=== PATIENT | female | born 1960 | race Caucasian/White ===

== ENCOUNTER 2019-02-17 14:31 | Inpatient (IN) | payer OTHER ==
[~2019-02-17] VITALS: Ht 165.1 cm; Wt 106.1 kg
--- NOTE | 2019-02-17 18:30 | NUR ---
Admitted this 58 y/o female from [facility] with diagnosis of S/P left hip arthroplasty. Patient is alert, oriented x 4, not in any form of distress. Patient denies any pain or discomfort at this time. Routine admission care done. Call light placed within reach. Dr. Patel informed regarding admission and received orders for pain medications and bowel regimen. Marin Ibarra DNP notified of admission and need for medication reconciliation.
[2019-02-17] MEDS ORDERED: RIVA10TA PO (19:05)
[2019-02-17] MEDS ORDERED: HYDR-4076 PO (19:05)
[2019-02-17 19:30] VITALS: BP 105/45
[2019-02-17] MEDS ORDERED: BISACODYL 5 MG TABLET.DR PO PRN (19:30)
--- NOTE | 2019-02-17 19:30 | NUR ---
PATIENT RECEIVED IN BED, WATCHING TV. ALERT AND ORIENTED X 4. LEFT SIDED INCISION PHOTOGRAPHED AND DRESSING CHANGED. BELONGINGS ACCOUNTED FOR AND DOCUMENTED. C/O PAIN IN LEFT SIDE. PAIN MEDICATION ADMINISTERED. NO BM SINCE SURGERY. BOWEL CARE STARTED. CALL LIGHT AND FREQUENTLY USED ITEMS WITHIN REACH. WILL CONTINUE TO MONITOR.
[2019-02-17] MEDS: SENNOSIDES 1 TABLET PO SCH (20:13)
[2019-02-17] MEDS: HYDROCODONE/APAP 10-325 MG TABLET PO PRN (20:14)
[2019-02-17] MEDS: ZOLPIDEM 5 MG TABLET PO PRN (23:34)
--- NOTE | 2019-02-17 23:39 | NUR ---
PATIENT C/O SLEEPLESSNESS. MD SNEED CONTACTED. AMBIEN 5 MG ORDERED HS PRN. WILL ADMINISTER. WILL CONTINUE TO MONITOR.
[2019-02-18] MEDS: HYDROCODONE/APAP 10-325 MG TABLET PO PRN ×5 (00:18→22:21)
[2019-02-18 05:55] VITALS: BP 113/71
[2019-02-18 08:40] VITALS: BP 114/68
[2019-02-18] MEDS: hydrALAZINE HCL 25 MG TABLET PO SCH (08:42)
[2019-02-18] MEDS: RIVAROXABAN 10 MG TABLET PO SCH (08:47)
[2019-02-18 17:30] VITALS: BP 109/60
[2019-02-18 19:57] VITALS: BP 92/51
[2019-02-18] MEDS: SENNOSIDES 1 TABLET PO SCH (20:15)
--- NOTE | 2019-02-18 20:59 | NUR ---
resting in bed upon initial rounds. aaox4 Left hip dressing clean dry and intact. VSS. making needs known.Family in to visit. Ambulates to the BR with walker. Voiding freely. Denies any pain nor any discomfort. Will monitor patient. Kept comfortable.
[2019-02-18] MEDS: ZOLPIDEM 5 MG TABLET PO PRN (23:39)
[2019-02-19] MEDS: HYDROCODONE/APAP 10-325 MG TABLET PO PRN ×5 (06:01→23:41)
[2019-02-19 06:12] VITALS: BP 163/64
--- NOTE | 2019-02-19 06:20 | NUR ---
slept well most of the shift. aaox4. OOB to the BR with walker under supervision. Voiding well. medicated with 1 tab of [place] for pain on the left hip. No acute distress noted. Relief noted on left hip. attended to needs. When in bed patient has this abductor pillow in between legs. kept comfortable. VSS.
[2019-02-19] MEDS: RIVAROXABAN 10 MG TABLET PO SCH (08:44)
[2019-02-19] MEDS: hydrALAZINE HCL 25 MG TABLET PO SCH (08:51)
[2019-02-19 09:52] VITALS: BP 113/64
--- NOTE | 2019-02-19 09:53 | NUR ---
Received pt. in bed in no distress. A/Ox4 verbally responsive and able to make her needs known. All needs attended and met promptly. All due medications given as ordered and tolerated well. No s/sx of bleeding, on Xarelto. Lt hip surgical incision covered with boarder gauze, remain C/D/I. Safety measures in place. Call light and all frequently used items within pt. reach. Will continue to monitor accordingly.
[2019-02-19 17:25] VITALS: BP 123/66
--- NOTE | 2019-02-19 18:37 | NUR ---
End of shift note: No significant change during this shift. All needs attended and met promptly. Safety measures in placed. Bed in low position, brake on, side rails up x2 as an enabler. Call light and all frequently used items within pt. reach. Will endorse to next shift accordingly.
[2019-02-19 19:49] VITALS: BP 117/74
--- NOTE | 2019-02-19 19:52 | NUR ---
received in bed upon initial rounds. daughter in to visit. VSS. No acute distress noted. in good spirits. voiding well in the urinal. needs attended. kept comfortable. siderails up for safety. fall precautions maintained.
--- NOTE | 2019-02-19 19:58 | NUR ---
aaox4 resting in bed upon rounds watching TV. no acute distress noted. needs attended. OOB to the BR with walker. Voiding freely. VSS medicated with [place] as ordered for pain. Will monitor for relief.
[2019-02-19] MEDS: SENNOSIDES 1 TABLET PO SCH (20:08)
[2019-02-19] MEDS: ZOLPIDEM 5 MG TABLET PO PRN (23:41)
[2019-02-20 05:52] VITALS: BP 120/76
[2019-02-20 09:00] VITALS: BP 134/79
[2019-02-20] MEDS: RIVAROXABAN 10 MG TABLET PO SCH (09:00)
[2019-02-20] MEDS: hydrALAZINE HCL 25 MG TABLET PO SCH (09:03)
[2019-02-20] MEDS: HYDROCODONE/APAP 10-325 MG TABLET PO PRN ×4 (09:04→23:03)
--- NOTE | 2019-02-20 09:16 | NUR ---
Patient awake, alert, oriented x 4, not in any distress. Assisted to the bathroom and back to wheelchair. Due medications administered and tolerated well. PRN pain medication given for complain of left hip pain. Safety measures in place. Call light and frequently used items placed within reach.
--- NOTE | 2019-02-20 10:36 | NUR ---
INDIVIDUALIZED OVERALL PLAN OF CAR
[2019-02-20 17:30] VITALS: BP 119/70
--- NOTE | 2019-02-20 19:05 | NUR ---
AWAKE DURING INITIAL ROUNDS. WATCHING TV AT THIS TIME. DENIES ANY PAIN/DISCOMFORTS. ABDUCTION PILLOW IN BETWEEN LEGS. NO S/S OF INFECTION NOTED ON LEFT HIP INCISION SITE. SAFETY MEASURE AND FALL PRECAUTION MAINTAINED. CONTINUE CARE PLANNED.
[2019-02-20] MEDS: SENNOSIDES 1 TABLET PO SCH (21:02)
--- NOTE | 2019-02-20 23:05 | NUR ---
ASSISTED TO THE BATHROOM. AMBULATED WITH FWW. VOIDED GOOD. COMPLAINT OF LEFT HIP PAIN DURING AMBULATION. MEDICATED FOR PAIN NEEDED AND ORDERED. WILL MONITOR.
[2019-02-21] MEDS: HYDROCODONE/APAP 10-325 MG TABLET PO PRN ×5 (03:42→23:07)
[2019-02-21 06:21] VITALS: BP 104/62
--- NOTE | 2019-02-21 06:39 | NUR ---
SHIFT END REPORT:VS STABLE. MEDICATED FOR PAIN ON LEFT HIP X3 WITH RELIEF. REQUIRED ASSISTANCE TO THE BATHROOM. NO FALL/INJURY REPORTED. ALL NEEDS ATTENDED AND MET. NO SIGNIFICANT EVENT REPORTED ALL NIGHT. CONTINUE CURRENT REHAB PLAN OF CARE.
[2019-02-21] MEDS: hydrALAZINE HCL 25 MG TABLET PO SCH (08:40)
[2019-02-21] MEDS: RIVAROXABAN 10 MG TABLET PO SCH (08:41)
[2019-02-21 09:11] VITALS: BP 127/76
--- NOTE | 2019-02-21 12:43 | NUR ---
Received telephone order from Dr. Patel for MRI of lumbar spine. Order noted and carried out. Pt. made aware but states she is unable to go through procedure due to fear of being in small space. Will inform
[2019-02-21 16:04] VITALS: BP 125/74
--- NOTE | 2019-02-21 19:05 | NUR ---
Awake, in bed, watching TV at this time. Denies pain at this time but claiming that she had a busy day. Safety measure and fall precaution maintained. Continue care as planned.
[2019-02-21 19:37] VITALS: BP 107/64
[2019-02-21] MEDS: SENNOSIDES 1 TABLET PO SCH (20:43)
--- NOTE | 2019-02-21 23:10 | NUR ---
Left hip pain presented, medicated as ordered and needed. Will monitor.
[2019-02-22] MEDS: HYDROCODONE/APAP 10-325 MG TABLET PO PRN ×5 (06:09→23:09)
[2019-02-22 06:16] VITALS: BP 124/74
--- NOTE | 2019-02-22 06:20 | NUR ---
Shift End Report: VS stable. Slept good. Medicated twice for left hip pain with relief. No further complaint presented. All needs attended and met. No significant5 event reported. Continue current rehab plan of care.
[2019-02-22 08:12] VITALS: BP 120/67
[2019-02-22] MEDS: hydrALAZINE HCL 25 MG TABLET PO SCH (08:29)
[2019-02-22] MEDS: RIVAROXABAN 10 MG TABLET PO SCH (08:31)
--- NOTE | 2019-02-22 14:30 | NUR ---
Re-assessed Lt. hip incision with 25 aylin. No s/sx of infection, no drainage. Picture taken and placed in chart. Covered with new boarder gauze. Kept clean and dry.
--- NOTE | 2019-02-22 15:18 | NUR ---
Pt. c/o generalized skin itching. Pt. showered and bed linen changed. Attending notified, received order from Dr. Olson for Benadryl 25 mg PO Q8H PRN for itching. Orders noted and carried out. Pt. made aware and thankful.
[2019-02-22 16:01] VITALS: BP 113/72
[2019-02-22] MEDS: diphenhydrAMINE 25 MG CAP PO PRN (17:12)
--- NOTE | 2019-02-22 18:20 | NUR ---
End of shift note: All needs attended and met promptly. Safety measures in placed. Bed in low position, brake on, side rails up x2 as an enabler. Call light and all frequently used items within pt. reach. Will endorse to next shift accordingly.
--- NOTE | 2019-02-22 19:10 | NUR ---
Awake, watching TV at this time. Denies any pain/discomforts at this time. Abduction pillow in between legs. Safety measure and afll precaution maintained. Continue care as planned.
[2019-02-22 19:37] VITALS: BP 104/59
[2019-02-22] MEDS: SENNOSIDES 1 TABLET PO SCH (20:56)
[2019-02-23] MEDS: HYDROCODONE/APAP 10-325 MG TABLET PO PRN ×4 (05:11→20:34)
--- NOTE | 2019-02-23 05:30 | NUR ---
Shift End Report: VS stable. Medicated twice for pain with relief. . No further complaint presented. Slept good. No fall/injury reported. All needs attended and met. No significant event reported all night. Continue rehab plan of care.
[2019-02-23 05:52] VITALS: BP 117/76
[2019-02-23 06:59] LABS: BASOPHILS % (AUTO) 0.3 % (0.0-2.0); EOSINOPHILS # (AUTO) 0.8 K/uL (0.0-0.7); EOSINOPHILS % (AUTO) 14.9 % (0.0-7.0); HEMATOCRIT 30.1 % (31.2-41.9); HEMOGLOBIN 9.9 g/dL (10.9-14.3); LYMPHOCYTES # (AUTO) 1.3 K/uL (20.0-40.0); LYMPHOCYTES % (AUTO) 24.6 % (20.5-51.5); MEAN CORPUSCULAR HGB CONC 33 g/dL (32.3-35.6); MEAN CORPUSCULAR VOLUME 85.1 fL (75.5-95.3); MONOCYTES # (AUTO) 0.5 K/uL (2.0-10.0); MONOCYTES % (AUTO) 10.1 % (0.0-11.0); NEUTROPHILS # (AUTO) 2.6 K/uL (1.8-8.9); NEUTROPHILS % (AUTO) 50.1 % (38.5-71.5); PLATELET COUNT (AUTO) 376 K/uL (179-408); RED BLOOD CELL COUNT(AUTO) 3.53 MIL/uL (3.63-4.92); WHITE BLOOD COUNT (AUTO) 5.1 K/uL (3.8-11.8)
[2019-02-23 07:14] LABS: CREATININE 0.7 mg/dL (0.6-1.3); MAGNESIUM 2.1 mg/dL (1.8-2.4); PHOSPHOROUS 4.5 mg/dL (2.5-4.9); POTASSIUM 4.3 mmol/L (3.5-5.1)
[2019-02-23 07:30] VITALS: BP 98/64
[2019-02-23] MEDS: RIVAROXABAN 10 MG TABLET PO SCH (08:59)
[2019-02-23] MEDS: hydrALAZINE HCL 25 MG TABLET PO SCH (08:59)
--- NOTE | 2019-02-23 09:05 | NUR ---
Patient awake, alert, oriented x 4, sitting on the wheelchair, not in any form of distress. Due medications administered and tolerated well. PRN pain medication given for complain of left hip pain. Noted with clean and dry dressing on the left hip surgical site. Assisted with her needs. Call light and frequently used items placed within reach.
[2019-02-23 16:32] VITALS: BP 121/77
[2019-02-23 20:09] VITALS: BP 116/68
[2019-02-23] MEDS: SENNOSIDES 1 TABLET PO SCH (20:34)
[2019-02-23] MEDS: diphenhydrAMINE 25 MG CAP PO PRN (21:22)
[2019-02-24] MEDS: HYDROCODONE/APAP 10-325 MG TABLET PO PRN ×4 (03:22→23:43)
[2019-02-24 05:11] VITALS: BP 111/72
[2019-02-24] MEDS: hydrALAZINE HCL 25 MG TABLET PO SCH (09:02)
[2019-02-24] MEDS: RIVAROXABAN 10 MG TABLET PO SCH (09:04)
--- NOTE | 2019-02-24 09:11 | NUR ---
INTERDISCIPLINARY TEAM CONFERENCE
[2019-02-24 09:44] VITALS: BP 122/65
[2019-02-24] MEDS: SENNOSIDES 1 TABLET PO SCH (20:41)
[2019-02-24 20:51] VITALS: BP 148/85
--- NOTE | 2019-02-24 21:24 | NUR ---
Pt came back from her MRI appointment at 1907. Pt safely in bed and ate her dinner. Family at bedside. No acute distress noted. C/o 7/10 pain on the left hip. [place] PRN and other due med given as ordered. Pt showered tonight as per pt's request. Safety measures maintained. Call light and personal belongings within reach. Will continue to monitor.
--- NOTE | 2019-02-24 22:29 | NUR ---
Wound care and dressing change done on surgical site. No s/s of infection. Noted to be healing well. Will continue to monitor.
[2019-02-24] MEDS: ZOLPIDEM 5 MG TABLET PO PRN (23:41)
[2019-02-25 05:06] VITALS: BP 116/67
[2019-02-25] MEDS: HYDROCODONE/APAP 10-325 MG TABLET PO PRN ×5 (05:29→23:36)
--- NOTE | 2019-02-25 07:51 | NUR ---
Patient noted sitting up on the side of the bed, complaints of pain 5/10, no signs of distress noted, call light noted in reach, bed locked and in lowest position, all needs met at this time,
[2019-02-25 08:00] VITALS: BP 119/73
[2019-02-25] MEDS: hydrALAZINE HCL 25 MG TABLET PO SCH (09:03)
[2019-02-25] MEDS: RIVAROXABAN 10 MG TABLET PO SCH (09:22)
--- NOTE | 2019-02-25 19:47 | NUR ---
Patient received in bed, AAO x4. Able to make needs known. No acute distress or SOB noted. On room air. No Complain of pain at this time. Physical assessment done. Safety measures observed. Fall precaution maintained. Bed in low position, side rails up x2 for safety, brake and alarm on. call light and personal belongings within reach. Continue to monitor.
[2019-02-25] MEDS: SENNOSIDES 1 TABLET PO SCH (20:28)
[2019-02-25 20:40] VITALS: BP 112/59
[2019-02-25] MEDS: diphenhydrAMINE 25 MG CAP PO PRN (22:15)
[2019-02-26] MEDS: HYDROCODONE/APAP 10-325 MG TABLET PO PRN ×4 (05:55→19:43)
[2019-02-26 06:24] VITALS: BP 104/65
--- NOTE | 2019-02-26 06:29 | NUR ---
End of the shift note Patient was stable throughout the shift and has a good sleep last night. No acute distress or SOB noted. On room air. Complained of pain on left hip, rated 7/10 on numeric scale. [place] 10-325 given and was effective. Pain assessed and reassessed after pain medication. All due medication given as ordered and tolerated well. Physical assessment done. Safety measures observed. Fall precaution maintained. All needs attended promptly. Bed in low position, side rails up x2 for safety, brake and alarm on. Call light and personal belongings within reach. Continue to monitor and will endorse to the day shift nurse accordingly.
[2019-02-26 07:30] VITALS: BP 126/77
--- NOTE | 2019-02-26 08:18 | NUR ---
Patient noted sitting on the side of the bed, complaints of pain, prn pain medication given by material handler 2nd shift, call light in reach, bed locked and lowest position, all needs met at this time
[2019-02-26] MEDS: RIVAROXABAN 10 MG TABLET PO SCH (08:31)
[2019-02-26] MEDS: hydrALAZINE HCL 25 MG TABLET PO SCH (08:33)
[2019-02-26 15:25] VITALS: BP 131/76
--- NOTE | 2019-02-26 19:45 | NUR ---
Patient received in bed, AAO x4. Able to make needs known. No acute distress or SOB noted. On room air. Complain of pain at the left hip rated 8/10 on numeric scale. Physical assessment done. Safety measures observed. Fall precaution maintained. Bed in low position, side rails up x2 for safety, brake and alarm on. call light and personal belongings within reach. Continue to monitor.
[2019-02-26 19:49] VITALS: BP 119/45
[2019-02-26] MEDS: SENNOSIDES 1 TABLET PO SCH (20:03)
[2019-02-27] MEDS: HYDROCODONE/APAP 10-325 MG TABLET PO PRN ×6 (00:07→21:57)
[2019-02-27 04:32] VITALS: BP 116/67
--- NOTE | 2019-02-27 06:24 | NUR ---
End of the shift note Patient was stable throughout the shift and has a good sleep last night. No acute distress or SOB noted. On room air. Complained of pain on left hip, rated 7/10 on numeric scale. [place] 10-325 given and was effective. Pain assessed and reassessed after pain medication. All due medication given as ordered and tolerated well. Had a shower last night. Surgical dressing changed. Physical assessment done. Safety measures observed. Fall precaution maintained. All needs attended promptly. Bed in low position, side rails up x2 for safety, brake and alarm on. Call light and personal belongings within reach. Continue to monitor and will endorse to the day shift nurse accordingly.
[2019-02-27 08:45] VITALS: BP 110/64
--- NOTE | 2019-02-27 08:48 | NUR ---
Patient noted being ambulating to restroom with walker, PRN pain medications given for pain 6/10 in left hip, no signs of distress noted call light in reach, bed locked and in lowest position, all needs met
[2019-02-27] MEDS: hydrALAZINE HCL 25 MG TABLET PO SCH (08:59)
[2019-02-27] MEDS: RIVAROXABAN 10 MG TABLET PO SCH (09:12)
--- NOTE | 2019-02-27 11:48 | NUR ---
02/28/19 follow up ortho appointment with Dr. Quique Meyers at 1pm. Address: [address] [place] [address] [address] [place] [address] [employer] 12pm
[2019-02-27 16:00] VITALS: BP 126/74
--- NOTE | 2019-02-27 18:43 | NUR ---
No changes this shift, small blisters noted around adhesive bordered gauze, area cleaned with normal saline, pat dry and replaced with Mepilex, prn pain medications given as prescribed
[2019-02-27 19:52] VITALS: BP 139/79
[2019-02-27] MEDS: SENNOSIDES 1 TABLET PO SCH (20:58)
--- NOTE | 2019-02-27 21:29 | NUR ---
Received pt in bed, AAO x 4, watching television. No acute distress noted. Verbally responsive and able to verbalize needs. All safety measures and fall precautions maintained. Call light and all frequently used items within reach. Will continue to monitor.
[2019-02-28] MEDS: HYDROCODONE/APAP 10-325 MG TABLET PO PRN ×4 (03:21→20:05)
[2019-02-28 05:07] VITALS: BP 114/74
[2019-02-28] MEDS: hydrALAZINE HCL 25 MG TABLET PO SCH (08:05)
[2019-02-28] MEDS: RIVAROXABAN 10 MG TABLET PO SCH (08:06)
[2019-02-28 08:39] VITALS: BP 138/72
--- NOTE | 2019-02-28 12:15 | NUR ---
Patient picked up by ambulance for appointment with Dr. Meyers. Patient remains alert, not in any form of distress. She denies any pain or discomfort at this time.
--- NOTE | 2019-02-28 14:10 | NUR ---
Patient back from appointment with Dr. Meyers. [place] has been removed and surgical incision is with steri-strips, clean and dry.
[2019-02-28 16:42] VITALS: BP 133/83
--- NOTE | 2019-02-28 19:05 | NUR ---
Awake during initial rounds, crocheting. Denies any pain/discomforts at this time. Blister noted along the lowest part of incision site on left hip. Steri strips intact. Safety measure and fall precaution maintained. Continue care as planned.
[2019-02-28 20:51] VITALS: BP 118/64
[2019-02-28 21:20] VITALS: BP 138/90
[2019-02-28] MEDS: SENNOSIDES 1 TABLET PO SCH (21:23)
[2019-03-01] MEDS: HYDROCODONE/APAP 10-325 MG TABLET PO PRN ×6 (00:15→22:39)
[2019-03-01 04:30] VITALS: BP 121/71
--- NOTE | 2019-03-01 05:50 | NUR ---
Re-assessed Lt. hip incision covered with steristrips. No s/sx of infection, no drainage. Fluid filled blisters noted, intact. Picture taken and placed in chart. Kept site open to air, clean and dry.
[2019-03-01 06:58] LABS: BASOPHILS % (AUTO) 1.2 % (0.0-2.0); EOSINOPHILS # (AUTO) 0.4 K/uL (0.0-0.7); EOSINOPHILS % (AUTO) 9.1 % (0.0-7.0); HEMOGLOBIN 9.8 g/dL (10.9-14.3); LYMPHOCYTES # (AUTO) 1.1 K/uL (20.0-40.0); LYMPHOCYTES % (AUTO) 28.3 % (20.5-51.5); MEAN CORPUSCULAR HGB CONC 33 g/dL (32.3-35.6); MEAN CORPUSCULAR VOLUME 85.2 fL (75.5-95.3); MONOCYTES # (AUTO) 0.4 K/uL (2.0-10.0); MONOCYTES % (AUTO) 10.9 % (0.0-11.0); NEUTROPHILS % (AUTO) 50.5 % (38.5-71.5); PLATELET COUNT (AUTO) 388 K/uL (179-408); RED BLOOD CELL COUNT(AUTO) 3.52 MIL/uL (3.63-4.92)
[2019-03-01 07:07] LABS: CREATININE 0.6 mg/dL (0.6-1.3); MAGNESIUM 1.9 mg/dL (1.8-2.4); PHOSPHOROUS 4.1 mg/dL (2.5-4.9); POTASSIUM 3.9 mmol/L (3.5-5.1)
[2019-03-01] MEDS: hydrALAZINE HCL 25 MG TABLET PO SCH (08:19)
[2019-03-01] MEDS: RIVAROXABAN 10 MG TABLET PO SCH (08:20)
--- NOTE | 2019-03-01 08:28 | NUR ---
Patient noted resting in bed, complaints of pain in left hip, PRN pain medication will be given at next due time, no signs of distress noted, call light in reach, bed locked and in lowest position, all needs met
[2019-03-01 09:32] VITALS: BP 133/77
[2019-03-01 16:21] VITALS: BP 131/81
[2019-03-01] MEDS: SENNOSIDES 1 TABLET PO SCH (20:26)
[2019-03-01 20:52] VITALS: BP 143/85
--- NOTE | 2019-03-01 23:06 | NUR ---
Received pt during initial rounds in bed, AAO x 4 watching television. No acute distress noted. Verbally responsive and able to make needs known. Denies pain or discomfort at this time. All safety measures and fall precautions maintained. Call light and all personal belongings within reach. Will continue to monitor.
[2019-03-02] MEDS: HYDROCODONE/APAP 10-325 MG TABLET PO PRN ×5 (02:40→22:45)
[2019-03-02 04:59] VITALS: BP 136/71
[2019-03-02 07:30] VITALS: BP 142/86
[2019-03-02] MEDS: RIVAROXABAN 10 MG TABLET PO SCH (08:17)
[2019-03-02] MEDS: hydrALAZINE HCL 25 MG TABLET PO SCH (08:17)
--- NOTE | 2019-03-02 09:01 | NUR ---
Received patient awake in bed in stable condition. Complaint of left hip pain scale 8 out of 10. [place] 10-325mg given with good effect. For FF UP MRI result in [facility]. not in distress. will continue monitor
[2019-03-02 20:22] VITALS: BP 124/71
[2019-03-02] MEDS: SENNOSIDES 1 TABLET PO SCH (21:44)
[2019-03-03] MEDS: HYDROCODONE/APAP 10-325 MG TABLET PO PRN ×5 (02:47→22:28)
[2019-03-03 06:13] VITALS: BP 110/68
[2019-03-03] MEDS: hydrALAZINE HCL 25 MG TABLET PO SCH (08:43)
[2019-03-03] MEDS: RIVAROXABAN 10 MG TABLET PO SCH (08:46)
[2019-03-03 09:04] VITALS: BP 114/73
--- NOTE | 2019-03-03 11:36 | NUR ---
Received patient awake in bed. Continue therapy for ambulation and unsteady gait. Continue pain management prior to therapy with good effect. will continue monitor
--- NOTE | 2019-03-03 13:16 | NUR ---
INTERDISCIPLINARY TEAM CONFERENCE
[2019-03-03 18:41] VITALS: BP 145/85
--- NOTE | 2019-03-03 19:50 | NUR ---
aaox4 ambulates to the BR with walker with supervision. Voiding freely. needs attended. denies any pain at this time. will monitor patient.VSS. no acute distress noted.
[2019-03-03 19:54] VITALS: BP 141/81
[2019-03-03] MEDS: SENNOSIDES 1 TABLET PO SCH (20:32)
[2019-03-03] MEDS: diphenhydrAMINE 25 MG CAP PO PRN (22:30)
[2019-03-04] MEDS: HYDROCODONE/APAP 10-325 MG TABLET PO PRN ×5 (03:08→20:22)
[2019-03-04 05:43] VITALS: BP 120/44
--- NOTE | 2019-03-04 06:38 | NUR ---
End of the shift note Patient was stable throughout the shift and has a good sleep last night. No acute distress or SOB noted. On room air. Complained of pain on left hip, rated 8/10 on numeric scale. [place] 10-325 given and was effective. Pain assessed and reassessed after pain medication. Physical assessment done. Safety measures observed. Fall precaution maintained. All needs attended promptly. Bed in low position, side rails up x2 for safety, brake and alarm on. Call light and personal belongings within reach. Continue to monitor and will endorse to the day shift nurse accordingly.
[2019-03-04 08:00] VITALS: BP 135/82
[2019-03-04] MEDS: hydrALAZINE HCL 25 MG TABLET PO SCH (08:12)
[2019-03-04] MEDS: RIVAROXABAN 10 MG TABLET PO SCH (08:14)
[2019-03-04 16:50] VITALS: BP 150/89
[2019-03-04] MEDS: SENNOSIDES 1 TABLET PO SCH (20:21)
[2019-03-04 20:44] VITALS: BP 132/81
--- NOTE | 2019-03-04 23:34 | NUR ---
resting in bed upon initial rounds. aaox4 no acute distress noted. needs attended. VSS. medicated with [place] for pain on left hip. blister on the lower part of the incision popped. bleeding noted. dressing applied. will continue to monitor for bleeding.
[2019-03-05] MEDS: HYDROCODONE/APAP 10-325 MG TABLET PO PRN ×5 (00:17→21:18)
[2019-03-05 04:50] VITALS: BP 134/77
[2019-03-05] MEDS: RIVAROXABAN 10 MG TABLET PO SCH (08:44)
[2019-03-05 08:49] VITALS: BP 111/68
[2019-03-05] MEDS: hydrALAZINE HCL 25 MG TABLET PO SCH (08:54)
[2019-03-05 17:58] VITALS: BP 163/80
--- NOTE | 2019-03-05 20:09 | NUR ---
Received pt in bed, AAO x 4 with family at bedside. No acute distress noted. Verbally responsive and able to make needs known. Denies pain or discomfort at this time. All safety measures and fall precautions maintained. Call light and all personal belongings within reach. Will continue to monitor.
[2019-03-05] MEDS: SENNOSIDES 1 TABLET PO SCH (20:59)
[2019-03-05 21:11] VITALS: BP 140/78
[2019-03-06] MEDS: HYDROCODONE/APAP 10-325 MG TABLET PO PRN ×4 (02:12→21:13)
[2019-03-06 05:00] VITALS: BP 133/75
[2019-03-06 08:10] VITALS: BP 152/71
[2019-03-06] MEDS: hydrALAZINE HCL 25 MG TABLET PO SCH (08:16)
[2019-03-06] MEDS: RIVAROXABAN 10 MG TABLET PO SCH (08:19)
[2019-03-06 17:13] VITALS: BP 141/79
[2019-03-06 19:30] VITALS: BP 149/85
--- NOTE | 2019-03-06 19:30 | NUR ---
Received patient awake and alert in bed. Patient is A/Ox4. No signs of acute distress noted. No complaints of SOB. Complains of 7/10 pain to the hips. Patient able to ambulate steady with a walker. Safety measures initiated. Bed is low and locked, call light within reach. Will continue to monitor.
[2019-03-06] MEDS: SENNOSIDES 1 TABLET PO SCH (21:13)
[2019-03-07] MEDS: HYDROCODONE/APAP 10-325 MG TABLET PO PRN ×5 (01:24→22:03)
[2019-03-07] MEDS: diphenhydrAMINE 25 MG CAP PO PRN ×2 (01:28→22:06)
[2019-03-07 05:30] VITALS: BP 136/83
[2019-03-07 07:49] VITALS: BP 138/76
[2019-03-07] MEDS: hydrALAZINE HCL 25 MG TABLET PO SCH (08:18)
[2019-03-07] MEDS: RIVAROXABAN 10 MG TABLET PO SCH (08:25)
--- NOTE | 2019-03-07 09:52 | NUR ---
Up with occupational therapy, tolerating well. PRN [place] 10-325 given prior to therapy. With surgical wound dry and intact with steri-strips no discharges noted. Not in any from of distress. Will continue to monitor.
--- NOTE | 2019-03-07 14:18 | NUR ---
Ambulates well with front wheel walker, [place] 10-325 mg given prior to therapy. Reinforced steri-strips. protected previous blisters with Mepilex.
[2019-03-07 16:18] VITALS: BP 144/77
[2019-03-07 19:36] VITALS: BP 112/66
[2019-03-07] MEDS: SENNOSIDES 1 TABLET PO SCH (20:45)
[2019-03-08] MEDS: HYDROCODONE/APAP 10-325 MG TABLET PO PRN ×5 (02:04→23:40)
--- NOTE | 2019-03-08 03:59 | NUR ---
aaox4 ambulates to the BR with walker. VSS. On pain management. medicated with [place] 1 tab q4hrs as needed. Given with slight relief. Voiding well. needs attended. siderails up for safety.
[2019-03-08 05:11] VITALS: BP 109/70
[2019-03-08] MEDS: hydrALAZINE HCL 25 MG TABLET PO SCH (08:45)
[2019-03-08] MEDS: RIVAROXABAN 10 MG TABLET PO SCH (08:46)
[2019-03-08 09:00] VITALS: BP 124/68
[2019-03-08 16:00] VITALS: BP 142/95
--- NOTE | 2019-03-08 18:25 | NUR ---
Patient continue pain management prior therapy. not in distress. Continue requesting shower- done. Continue therapy for ambulation and unsteady gait. will continue monitor
[2019-03-08 19:56] VITALS: BP 140/75
--- NOTE | 2019-03-08 20:48 | NUR ---
resting in bed aaox4 ambulates to the BR with walker. voiding freely. needs attended. pain meds given as needed. left hip incision dressing intact. no acute distress noted.
[2019-03-08] MEDS: SENNOSIDES 1 TABLET PO SCH (21:05)
[2019-03-08] MEDS: diphenhydrAMINE 25 MG CAP PO PRN (23:41)
[2019-03-09] MEDS: HYDROCODONE/APAP 10-325 MG TABLET PO PRN ×4 (04:29→20:12)
[2019-03-09 05:12] VITALS: BP 118/68
--- NOTE | 2019-03-09 06:56 | NUR ---
quiet night. slept well. [place] given for left hip pain. No acute distress noted. VSS. needs attended. will monitor patient. voiding well in the BR. kept comfortable.
[2019-03-09] MEDS: RIVAROXABAN 10 MG TABLET PO SCH (08:00)
[2019-03-09 08:50] VITALS: BP 118/80
[2019-03-09] MEDS: hydrALAZINE HCL 25 MG TABLET PO SCH (08:50)
[2019-03-09] MEDS: SENNOSIDES 1 TABLET PO SCH (20:12)
[2019-03-09 20:53] VITALS: BP 142/76
[2019-03-10] MEDS: HYDROCODONE/APAP 10-325 MG TABLET PO PRN ×4 (00:10→14:15)
[2019-03-10] MEDS: diphenhydrAMINE 25 MG CAP PO PRN ×2 (00:11→14:15)
--- NOTE | 2019-03-10 04:15 | NUR ---
aaox4 OOB to the BR with walker. Voiding freely. [place] 1 tab given for left hip pain. No distress noted. For discharge today. Ct scan of the Rt leg and rt knee with contrast done tonight. Will monitor patient. Kept comfortable. VSS.
[2019-03-10 06:02] VITALS: BP 122/73
[2019-03-10 06:48] LABS: BASOPHILS % (AUTO) 1.4 % (0.0-2.0); EOSINOPHILS # (AUTO) 0.3 K/uL (0.0-0.7); EOSINOPHILS % (AUTO) 8.4 % (0.0-7.0); HEMATOCRIT 30.6 % (31.2-41.9); HEMOGLOBIN 9.9 g/dL (10.9-14.3); LYMPHOCYTES # (AUTO) 1.2 K/uL (20.0-40.0); LYMPHOCYTES % (AUTO) 35.5 % (20.5-51.5); MEAN CORPUSCULAR HEMOGLOBIN 27.5 uug (24.7-32.8); MEAN CORPUSCULAR HGB CONC 32 g/dL (32.3-35.6); MONOCYTES # (AUTO) 0.4 K/uL (2.0-10.0); MONOCYTES % (AUTO) 12.7 % (0.0-11.0); NEUTROPHILS # (AUTO) 1.4 K/uL (1.8-8.9); PLATELET COUNT (AUTO) 307 K/uL (179-408); WHITE BLOOD COUNT (AUTO) 3.4 K/uL (3.8-11.8)
[2019-03-10 06:54] LABS: BILIRUBIN,TOTAL 0.4 mg/dL (0.2-1.0); CREATININE 0.6 mg/dL (0.6-1.3); MAGNESIUM 2.1 mg/dL (1.8-2.4); PHOSPHOROUS 4.6 mg/dL (2.5-4.9); TOTAL PROTEIN, SERUM 6.1 g/dL (6.4-8.2)
[2019-03-10 06:58] LABS: THYROID STIMULATING HORMONE 3.649 mIU/mL (0.358-3.740)
[2019-03-10 08:00] VITALS: BP 127/77
[2019-03-10 09:14] VITALS: BP 127/77
[2019-03-10] MEDS: hydrALAZINE HCL 25 MG TABLET PO SCH (09:14)
[2019-03-10] MEDS: RIVAROXABAN 10 MG TABLET PO SCH (09:15)
--- NOTE | 2019-03-10 15:52 | NUR ---
D/C TO HOME WITH FAMILY. VSS. NO DISTRESS NOTED. BELONGINGS LIST RECONCILED. SKIN PICS TAKEN D/C ORDER ON FILE. ARM BAND REMOVED
== END 2019-03-10 15:40 | disposition home or self-care (01) | DRG 560 ==
PROVIDERS: ADMIT Physical Medicine & Rehabilitation Pain Medicine; ATTEND Physical Medicine & Rehabilitation Pain Medicine
DX: Z47.1 Aftercare following joint replacement surgery (principal); D68.59 Other primary thrombophilia; Z96.642 Presence of left artificial hip joint; Z96.651 Presence of right artificial knee joint; E66.01 Morbid (severe) obesity due to excess calories; Z68.38 Body mass index [BMI] 38.0-38.9, adult; I10 Essential (primary) hypertension; R53.1 Weakness; D64.9 Anemia, unspecified; M17.11 Unilateral primary osteoarthritis, right knee; R20.0 Anesthesia of skin; M51.16 Intervertebral disc disorders with radiculopathy, lumbar region
CPT/HCPCS: 36415; 73502; 73700; 82747; 83735; 84100; 84443; 85014; 85025; 97110; 97112; 97116; 97165; 97530; 97535; A4663; Q0163